=== PATIENT | female | born 1990 | race Caucasian/White ===

== ENCOUNTER → 2017-02-10 | Outpatient (CLI) | payer MEDICAID ==
--- NOTE | 2017-02-10 15:19 | XR ---
EXAMINATION TYPE: XR chest 2V DATE OF EXAM: 02/10/2017 COMPARISON: NONE HISTORY: Cough for 5 weeks. TECHNIQUE: Frontal and lateral views of the chest are obtained. FINDINGS: There is no focal air space opacity, pleural effusion, or pneumothorax seen. The cardiac silhouette size is within normal limits. The osseous structures are intact. IMPRESSION: No suspicious acute pulmonary process.
== END | disposition home or self-care (01) ==
LOC: RADXRMAIN 14:50
PROVIDERS: ATTEND Internal Medicine
DX: R05 Cough (principal)
CPT/HCPCS: 71046

== ENCOUNTER 2017-03-24 17:01 | Inpatient (IN) | payer MEDICAID ==
[2017-03-29] MEDS ORDERED: DINOPROSTONE 10 MG INSERT.ER VAGINAL ONE (19:25)
[2017-03-29] MEDS ORDERED: BUTORPHANOL 1 MG/ML 1 ML VIAL IV PRN (19:59)
[2017-03-29] MEDS ORDERED: TERBUTALINE 1 MG/ML VIAL SQ PRN (20:01)
[2017-03-29] MEDS ORDERED: METHYLERGONOVINE 0.2 MG/ML 1 ML AMP IM PRN (20:01)
[2017-03-29] MEDS ORDERED: OXYTOCIN 10 UNIT/ML 1 ML VIAL IM PRN (20:01)
[2017-03-29] MEDS ORDERED: CARBOPROST TROMETHAMINE 250 MCG/ML 1 ML AMP IM PRN (20:01)
[2017-03-29] MEDS ORDERED: LIDOCAINE 1% (PF) 10 MG/ML (30 ML SDV) SQ PRN (20:01)
[2017-03-29 20:04] VITALS: BMI 34.7
--- NOTE | 2017-03-29 20:10 | P.HPOB ---
History of Present Illness H&P Date: 03/29/17 Chief Complaint: 40 and 5/7 weeks, unfavorable cervix, labor induction The patient is a 27-year-old 1 para 0 admitted at 40-5/7 weeks as established by last menstrual period and confirmed by 19 week ultrasound. She is admitted for Cervidil cervical ripening and subsequent induction if necessary. Her has been entirely uncomplicated and group B strep status is negative. On labor and delivery, all signs are reassuring. Her cervix has been unfavorable at fingertip dilation, 70% effacement, with the vertex in presentation at -2-3 station. Obstetrical history 1 para 0 with current statistics listed above. EDC of 03/24/2017 was established by last menstrual period and confirmed by 19 week ultrasound. Laboratory workup demonstrates a blood type of A+ with a negative antibody screen. Rubella status is nonimmune and she is to receive vaccination following delivery. Remainder of her laboratory workup was within normal limits. One hour Glucola was within normal limits and group B strep status is negative. Gynecologic history is unremarkable with no history of any infections to include STDs. Review of Systems Review of systems is confined to history of present illness. Past Medical History Past Medical History: Asthma Additional Past Medical History / Comment(s): narcolepsy, History of Any Multi-Drug Resistant Organisms: None Reported Past Surgical History: No Surgical Hx Reported Past Anesthesia/Blood Transfusion Reactions: No Reported Reaction Past Psychological History: No Psychological Hx Reported Smoking Status: Never smoker Past Alcohol Use History: Occasional Past Drug Use History: None Reported - Past Family History Mother Family Medical History: No Reported History Medications and Allergies Home Medications Medication Instructions Recorded Confirmed Type Citalopram Hydrobromide [CeleXA] 20 mg PO DAILY 09/11/13 03/29/17 History Allergies Allergy/AdvReac Type Severity Reaction Status Date / Time No Known Allergies Allergy Verified 03/29/17 19:23 Exam - Vital Signs Vital signs: Vital Signs Temp Pulse Resp BP 03/29/17 19:22 97.9 F 100 16 150/88 Intake and Output 03/29/17 03/29/17 03/29/17 06:59 14:59 22:59 Other: Weight 88.904 kg Patient Weight 03/30/17 06:59 Weight 88.904 kg In general, this is a well-developed, well-nourished white female in no acute distress. Her heart has a regular rhythm and rate without murmur. Her lungs are clear to auscultation bilaterally in all yu. Her abdomen is gravid, nondistended, has normal active bowel sounds, is soft, nontender, and without any palpable masses aside from uterine fundus. Her extremities are without any cyanosis, clubbing, or significant edema and are nontender to palpation bilaterally. Digital cervical examination confirms her cervix to be fingertip dilated, 70% effaced, the vertex in presentation at -2-3 station. Assessment and Plan (1) Unfavorable cervix in term Current Visit: Yes Status: Acute Code(s): O34.40 - MATERNAL CARE FOR OTH ABNLT OF CERVIX, UNSP TRIMESTER SNOMED Code(s): 499155925 (2) Post-dates Current Visit: Yes Status: Acute Code(s): O48.0 - POST-TERM SNOMED Code(s): 75997079 Plan: The patient has been admitted for Cervidil cervical ripening and subsequent Pitocin induction if necessary. The risks and complications of the procedure have been thoroughly discussed including the risk of hyperstimulation and distress. She will have close maternal and surveillance and expectant management will be practiced. Should labor not ensue with Cervidil, Pitocin augmentation will be started at 6 AM tomorrow morning. She is a good candidate for either IV or epidural analgesia, whichever she may choose.
[2017-03-30 05:58] LABS: Basophils % (A) 0 %; Eosinophils # (A) 0.4 k/uL (0-0.7); Eosinophils % (A) 3 %; HCT 40.4 % (34.0-46.0); HGB 13.2 gm/dL (11.4-16.0); Lymphocytes # (A) 1.9 k/uL (1.0-4.8); Lymphocytes % (A) 15 %; MCH 31.2 pg (25.0-35.0); MCHC 32.7 g/dL (31.0-37.0); MCV 95.5 fL (80.0-100.0); Mean Platelet Volume 9.3; Monocytes # (A) 0.6 k/uL (0-1.0); Monocytes % (A) 5 %; Neutrophils # (A) 9.6 k/uL (1.3-7.7); Neutrophils % (A) 75 %; Platelet Count 214 k/uL (150-450); RBC 4.23 m/uL (3.80-5.40); RDW 12.7 % (11.5-15.5); WBC 12.8 k/uL (3.8-10.6)
[2017-03-30] MEDS: OXYTOCIN 20 UNITS/1000 ML NS 1,000 ML IV SCH (06:03)
[2017-03-30] MEDS: LACTATED RINGERS 1,000 ML IV SCH ×5 (06:03→21:55)
[2017-03-30] MEDS ORDERED: fentaNYL (PF) 50 MCG/ML 5 ML AMP ONE (21:31)
[2017-03-30] MEDS ORDERED: BUPIVACAINE (PF) 0.25% 30 ML VIAL ONE (21:31)
[2017-03-30] MEDS ORDERED: SODIUM CHLORIDE 0.9% 100 ML BAG ONE (21:31)
[2017-03-30] MEDS ORDERED: BUPIVACAINE (PF) 0.25% 25 ML, fentaNYL (PF) 200 MCG in SODIUM CHLORIDE 0.9% 71 ML EPIDURAL ONE (21:49)
[2017-03-30] MEDS ORDERED: PENICILLIN G POTASSIUM 5,000,000 UNIT in DEXTROSE 5% IN WATER 100 ML IVPB STA ×2 (22:15)
[2017-03-31] MEDS: PENICILLIN G POTASSIUM 2,500,000 UNIT in DEXTROSE 5% IN WATER 100 ML IVPB SCH ×4 (02:30→06:39)
[2017-03-31] MEDS: LACTATED RINGERS 1,000 ML IV SCH (04:53)
[2017-03-31] MEDS ORDERED: diphenhydrAMINE 25 MG CAP PO PRN (08:37)
[2017-03-31] MEDS ORDERED: WITCH HAZEL 1 EACH MED..PAD TOPICAL PRN (08:37)
[2017-03-31] MEDS ORDERED: ZOLPIDEM 5 MG TAB PO PRN (08:37)
[2017-03-31] MEDS ORDERED: HYDROCORTISONE 2.5% RECTAL CREAM 30 GM TUBE RECTAL PRN (08:37)
[2017-03-31] MEDS ORDERED: diphenhydrAMINE 50 MG/ML 1 ML VIAL IVP PRN ×2 (08:37)
[2017-03-31] MEDS ORDERED: LANOLIN CREAM 5 GM TUBE TOPICAL PRN (08:37)
[2017-03-31] MEDS ORDERED: SIMETHICONE 80 MG CHEWABLE PO PRN (08:37)
[2017-03-31] MEDS ORDERED: BENZOCAINE/MENTHOL SPRAY 1 GM/SPRAY AEROSOL TOPICAL PRN (08:37)
[2017-03-31] MEDS ORDERED: diphenhydrAMINE 50 MG CAP PO PRN (08:37)
[2017-03-31] MEDS ORDERED: Acetaminophen-Codeine 300-30mg TAB PO PRN ×2 (08:37)
--- NOTE | 2017-03-31 08:42 | P.PROBDLV ---
Vaginal Delivery Note - . Vaginal Delivery Note: The patient is a 27-year-old 1 para 0 admitted at 40-5/7 weeks for Cervidil cervical ripening followed by Pitocin induction. She had Cervidil placed 2 nights ago and pulled out in standard fashion yesterday morning at which time there was no significant cervical change. Pitocin augmentation had been started. Artificial rupture of membranes is carried out demonstrating what appeared to be light meconium-stained fluid. She made extraordinarily slow progress through the latent phase of labor and was comfortable for the majority of the day. She had antibody prophylaxis started at approximately 12- 14 hours following rupture as she was still remote from delivery. She then progressed through the last portions of the latent phase of labor and had an epidural catheter placed for analgesia at approximate 4 cm of dilation. She continued to make slow progress to the active phase of labor but then progressed quickly from 6-7 cm to complete and approximately 0 station. She pushed over the course of approximate 1 hour to a normal spontaneous vaginal delivery of a viable 7 lbs. 6 oz. baby boy with Apgars of 9 at 1 minute and 9 at 5 minutes delivered in the direct occiput anterior position. The placenta was delivered spontaneously, intact, and grossly normal with a grossly normal three-vessel cord inserted approximately 3 cm from the margin of the placental disc. There was a second-degree midline laceration noted which was repaired in standard fashion using 3-0 chromic catgut without difficulty. Estimated blood loss for the case is approximately 300 mL. There are no, occasions. All sponge , instrument, and needle counts were correct. Both mother and infant are resting comfortably in recovery.
[2017-03-31] MEDS ORDERED: OXYTOCIN 20 UNITS/1000 ML NS 1,000 ML IV SCH (08:45)
[2017-03-31] MEDS: IBUPROFEN 600 MG TAB PO PRN ×2 (09:20→15:06)
[2017-03-31] MEDS: OXYTOCIN 20 UNITS/1000 ML NS 1,000 ML IV SCH (10:08)
[2017-03-31] MEDS: ACETAMINOPHEN TAB 325 MG TAB PO PRN ×3 (10:54→20:22)
[2017-03-31] MEDS: SENNOSIDES-DOCUSATE SODIUM 1 EACH TAB PO SCH (20:14)
[2017-04-01] MEDS ORDERED: MEASLES-MUMPS-RUBELLA VACC/PF 12,500 UNIT/0.5 ML VIAL SQ ONE (00:22)
[2017-04-01] MEDS: IBUPROFEN 600 MG TAB PO PRN ×3 (00:34→15:42)
[2017-04-01] MEDS: ACETAMINOPHEN TAB 325 MG TAB PO PRN ×3 (03:55→19:45)
[2017-04-01] MEDS: SENNOSIDES-DOCUSATE SODIUM 1 EACH TAB PO SCH ×2 (08:51→19:45)
--- NOTE | 2017-04-01 11:12 | P.PNOBGVD ---
Subjective - Subjective Patient reports: Reports appetite normal, Reports voiding normally, Reports pain well controlled, Reports ambulating normally : doing well Objective - Latest Vital Signs Latest vital signs: Vital Signs Temp Pulse Pulse Pulse Resp BP 04/01/17 07:51 97.4 F L 74 16 119/81 04/01/17 00:00 98.0 F 92 16 104/72 03/31/17 20:00 98.1 F 91 16 114/76 03/31/17 16:30 98.0 F 80 16 98/67 03/31/17 13:00 98.0 F 79 16 116/75 - Exam Lungs: bilateral: normal Chest: Normal S1, Normal S2 Extremities: Present: normal, edema (Pedal and pretibial in nature, +1) Abdomen: Present: normal appearance, soft Uterus: Present: normal, firm (The uterine fundus as tonic and nontender just below the umbilicus) Assessment and Plan (1) Unfavorable cervix in term Current Visit: Yes Status: Acute Code(s): O34.40 - MATERNAL CARE FOR OTH ABNLT OF CERVIX, UNSP TRIMESTER SNOMED Code(s): 643660025 (2) Post-dates Current Visit: Yes Status: Acute Code(s): O48.0 - POST-TERM SNOMED Code(s): 83643978 (3) Normal spontaneous vaginal delivery Current Visit: Yes Status: Acute Code(s): O80 - ENCOUNTER FOR FULL-TERM UNCOMPLICATED DELIVERY SNOMED Code(s): 83788367 Plan: Continue routine care. The infant is required to remain in the hospital for 48 hours pending the outcome of cultures secondary to prolonged rupture of membranes. He is otherwise doing well and circumcision has been carried out. I do anticipate discharge home tomorrow pending complications.
[2017-04-02] MEDS: IBUPROFEN 600 MG TAB PO PRN ×2 (00:28→08:14)
[2017-04-02] MEDS: SENNOSIDES-DOCUSATE SODIUM 1 EACH TAB PO SCH (08:14)
[2017-04-02 08:46] VITALS: BP 120/76; PULSE 82; RESP 20; TEMP 98
--- NOTE | 2017-04-02 17:36 | P.DS ---
Providers Date of admission: 03/29/17 19:01 Expected date of discharge: 04/02/17 Attending physician: Nadeem Díaz Primary care physician: Ruddy Vázquez - Discharge Diagnosis(es) (1) Meconium in amniotic fluid affecting management of mother Status: Acute (2) Normal spontaneous vaginal delivery Status: Acute (3) Perineal laceration during delivery Status: Acute (4) Post-dates Status: Acute (5) Prolonged rupture of membranes Status: Acute (6) Unfavorable cervix in term Status: Acute Hospital Course: This is a 27-year-old 1 para 0 admitted at 40 and 5/7 weeks for induction of labor with Cervidil, patient did minimal with the Cervidil overnight and was started on Pitocin induction. Artificial rupture of membranes was performed yielding light meconium-stained fluid. She made a slow progress throughout the latent phase of labor and was comfortable for majority of that day. She then became actively laboring and antibiotic prophylaxis was started 12-14 hours following rupture of membranes. She progressed to complete eventually getting an epidural. She pushed over the course of actually 1 hour to have a normal spontaneous vaginal delivery of a viable male infant 7-6 with Apgars of 9 and 9 at one and 5 minutes respectively. The placenta was then delivered spontaneously patient did suffer a second degree midline laceration which was repaired in the usual fashion. Patient's course was uneventful. Patient was 2 days secondary to a prolonged rupture of membranes. On day #2 patient was anxious to go home. She was ambulating and voiding without difficulty. She was tolerating a regular diet without nausea or vomiting. Her lochia was minimal. She denies fevers chills nausea or vomiting. The infant was doing well in addition. Therefore on this day #2 she was discharged home in stable condition Patient Condition at Discharge: Good Plan - Discharge Summary New Discharge Prescriptions: No Action QUEtiapine FUMARATE [SEROquel] 1 tab PO DAILY Cetirizine HCl [Zyrtec] 10 mg PO DAILY Pnv No.95/Ferrous Fum/Folic AC [ Multivitamin Tablet] 1 tab PO DAILY Discharge Medication List Cetirizine HCl [Zyrtec] 10 mg PO DAILY 03/29/17 [History] Pnv No.95/Ferrous Fum/Folic AC [ Multivitamin Tablet] 1 tab PO DAILY [History] QUEtiapine FUMARATE [SEROquel] 1 tab PO DAILY 03/29/17 [History] Follow up Appointment(s)/Referral(s): Nadeem Díaz MD [STAFF PHYSICIAN] - 6 Weeks Patient Instructions/Handouts: Vaginal Delivery (DC) Discharge Disposition: HOME SELF-CARE
== END 2017-04-02 11:40 | disposition home or self-care (01) | DRG 775 ==
LOC: 4FBP 03-29 19:01
PROVIDERS: ADMIT Obstetrics & Gynecology; ATTEND Obstetrics & Gynecology
PROC: 10E0XZZ Delivery of Products of Conception, External Approach (ICD-10-PCS; principal; 2017-03-31)
PROC: 0KQM0ZZ Repair Perineum Muscle, Open Approach (ICD-10-PCS; 2017-03-31)
PROC: 10907ZC Drainage of Amniotic Fluid, Therapeutic from Products of Conception, Via Natural or Artificial Opening (ICD-10-PCS; 2017-03-31)
PROC: 00HU33Z Insertion of Infusion Device into Spinal Canal, Percutaneous Approach (ICD-10-PCS; 2017-03-31)
PROC: 3E0R3NZ Introduction of Analgesics, Hypnotics, Sedatives into Spinal Canal, Percutaneous Approach (ICD-10-PCS; 2017-03-31)
PROC: 3E033VJ Introduction of Other Hormone into Peripheral Vein, Percutaneous Approach (ICD-10-PCS; 2017-03-31)
DX: O48.0 Post-term pregnancy (principal); O99.354 Diseases of the nervous system complicating childbirth; G47.419 Narcolepsy without cataplexy; O70.1 Second degree perineal laceration during delivery; O77.0 Labor and delivery complicated by meconium in amniotic fluid; O42.92 Full-term premature rupture of membranes, unspecified as to length of time between rupture and onset of labor; Z3A.40 40 weeks gestation of pregnancy; Z79.899 Other long term (current) drug therapy; Z37.0 Single live birth
CPT/HCPCS: 85025; 88307; 90707

== ENCOUNTER 2019-05-02 20:47 | Emergency (ER) | payer MEDICAID ==
[2019-05-02] MEDS ORDERED: IPRATROPIUM-ALBUTEROL 3 ML NEB INHALATION STA (21:21)
[2019-05-02] MEDS ORDERED: ACETAMINOPHEN TAB 325 MG TAB PO STA (21:21)
--- NOTE | 2019-05-02 21:43 | XR ---
EXAMINATION TYPE: XR chest 2V DATE OF EXAM: 05/02/2019 COMPARISON: Prior chest x-ray 02/10/2017 HISTORY: Fever and cough TECHNIQUE: Frontal and lateral views of the chest are obtained. FINDINGS: There is no focal air space opacity, pleural effusion, or pneumothorax seen. The cardiac silhouette size is within normal limits. The osseous structures are intact. IMPRESSION: No acute cardiopulmonary process.
[2019-05-02 22:00] VITALS: BP 114/71; PULSE 92; RESP 20; TEMP 98.1
--- NOTE | 2019-05-02 22:13 | ED ---
General Adult HPI - General Chief complaint: Fever Stated complaint: Fever/Cough/SOB Time Seen by Provider: 05/02/19 20:57 Source: patient Mode of arrival: ambulatory Limitations: no limitations - History of Present Illness Initial comments: Patient is a 29-year-old female, with history of mild asthma, presenting to emergency Department with complaints of a cough, shortness of breath 1 week. Patient states her cough started approximately one week ago and has been progressively getting worse. She states she feels some shortness of breath today that had her more concerned. She did have a fever for one day, 2 days ago. She has had no fever yesterday or today. She has been doing albuterol nebulizer treatments at home. She is currently on day 3 of a steroid Dosepak. She has been taking Tylenol and Motrin for headache. Patient denies any chest pains, abdominal pain, nausea, vomiting, diarrhea. She denies sore throat. She is a nurse in the emergency department here. She has no other pertinent past medical history. She has no other complaints at this time. Upon arrival to the ER, Patient is tachycardia at 121, respiratory rate of 26, BP 130/78, 97% on room air, 98.4 temp. - Related Data Home Medications Medication Instructions Recorded Confirmed Cetirizine HCl [Zyrtec] 10 mg PO HS 03/29/17 05/02/19 QUEtiapine FUMARATE [SEROquel] 25 mg PO HS 03/29/17 05/02/19 Citalopram Hydrobromide [CeleXA] 20 mg PO HS 05/02/19 05/02/19 Dextroamphetamine Sulfate 30 mg PO BID 05/02/19 05/02/19 [Dexedrine] Multivitamins, Thera [Multivitamin 1 tab PO DAILY 05/02/19 05/02/19 (formulary)] Previous Rx's Medication Instructions Recorded Azithromycin [Zithromax Z-pack] 0 mg PO DIRECTED #1 pack 05/02/19 Ipratropium-Albuterol Nebulize 3 ml INHALATION QID #1 box 05/02/19 [Duoneb 0.5 mg-3 mg/3 ml Soln] Allergies Allergy/AdvReac Type Severity Reaction Status Date / Time No Known Allergies Allergy Verified 05/02/19 21:39 Review of Systems ROS Statement: Those systems with pertinent positive or pertinent negative responses have been documented in the HPI. ROS Other: All systems not noted in ROS Statement are negative. Past Medical History Past Medical History: Asthma Additional Past Medical History / Comment(s): narcolepsy, History of Any Multi-Drug Resistant Organisms: None Reported Past Surgical History: No Surgical Hx Reported Past Anesthesia/Blood Transfusion Reactions: No Reported Reaction Past Psychological History: Bipolar Smoking Status: Never smoker Past Alcohol Use History: Occasional Past Drug Use History: None Reported - Past Family History Mother Family Medical History: No Reported History General Exam - General Exam Comments Initial Comments: GENERAL: Well-appearing, well-nourished and in no acute distress, actively coughing. HEAD: Atraumatic, normocephalic. EYES: Pupils equal round and reactive to light, extraocular movements intact, sclera anicteric, conjunctiva are normal. ENT: TMs normal, nares patent, oropharynx clear without exudates. Moist mucous membranes. NECK: Normal range of motion, supple without lymphadenopathy or JVD. LUNGS: Breath sounds clear to auscultation bilaterally and equal. No wheezes rales or rhonchi. HEART: Tachycardia rate and rhythm without murmurs, rubs or gallops. ABDOMEN: Soft, nontender, normoactive bowel sounds. No guarding, no rebound. No masses appreciated. : Deferred EXTREMITIES: Normal range of motion, no pitting or edema. No clubbing or cyanosis. NEUROLOGICAL: Normal speech, normal gait. PSYCH: Normal mood, normal affect. SKIN: Warm, Dry, normal turgor, no rashes or lesions noted. Limitations: no limitations Course Vital Signs 05/02/19 05/02/19 05/02/19 20:51 21:41 21:59 Temperature 98.4 F 98.1 F Pulse Rate 121 H 88 92 Respiratory 26 H 20 Rate Blood Pressure 130/78 114/71 O2 Sat by Pulse 97 97 Oximetry Medical Decision Making - Medical Decision Making Patient is a 29-year-old female presenting with a cough 1 week. Shortness of breath today. Patient was tachycardia upon arrival. Afebrile. Chest x-ray shows no acute abnormalities. Patient was given Tylenol, DuoNeb treatment. She reports improvement in her symptoms. Pulse is 88, respirations are 20. 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 Patient has been self quarantine at home and she will continue this process. We discussed continuing her already prescribed a steroid Dosepak. She will also be given a prescription for DuoNeb breathing treatments at home to use for shortness of breath or coughing. She also be given a prescription for azithromycin. Patient is in agreement with this plan of care. She is stable for discharge and wishes to go home. Strict return parameters were discussed with the patient she verbalized understanding. Case discussed with Dr. Bojorquez. Disposition Clinical Impression: Upper respiratory infection, Bronchitis Disposition: HOME SELF-CARE Condition: Stable Instructions (If sedation given, give patient instructions): Upper Respiratory Infection (ED) Additional Instructions: Please return to the Emergency Department if symptoms worsen or any other concerns. Finished current steroid pack. Continue with the dual at home nebulizer treatments as needed for cough or shortness of breath. Take antibiotic as prescribed. Follow up with PCP as needed. Prescriptions: Ipratropium-Albuterol Nebulize [Duoneb 0.5 mg-3 mg/3 ml Soln] 3 ml INHALATION QID #1 box Azithromycin [Zithromax Z-pack] 0 mg PO DIRECTED #1 pack Is patient prescribed a controlled substance at d/c from ED?: No Referrals: Ruddy Vázquez DO [Primary Care Provider] - 1-2 days
== END 2019-05-02 22:27 | disposition home or self-care (01) ==
LOC: EC 20:47
DX: J06.9 Acute upper respiratory infection, unspecified (principal); J40 Bronchitis, not specified as acute or chronic; R00.0 Tachycardia, unspecified; G47.419 Narcolepsy without cataplexy; F31.9 Bipolar disorder, unspecified; Z79.899 Other long term (current) drug therapy; Z87.09 Personal history of other diseases of the respiratory system
CPT/HCPCS: 71046; 94640; 99283

== ENCOUNTER 2019-10-16 20:28 | Emergency (ER) | payer MEDICAID, OTHER ==
[2019-10-16 20:33] VITALS: BP 138/89; PULSE 97; RESP 20; TEMP 98.1
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
== END 2019-10-16 20:55 | disposition home or self-care (01) ==
LOC: EC 20:28
DX: S50.11XA Contusion of right forearm, initial encounter (principal); F31.9 Bipolar disorder, unspecified; G47.419 Narcolepsy without cataplexy; Z79.899 Other long term (current) drug therapy; Y04.8XXA Assault by other bodily force, initial encounter; Y92.69 Other specified industrial and construction area as the place of occurrence of the external cause; Y99.0 Civilian activity done for income or pay
CPT/HCPCS: 99283

== ENCOUNTER → 2021-01-07 | Outpatient (CLI) | payer MEDICAID | END | disposition home or self-care (01) | LOC: LABWHC1 15:04 | PROVIDERS: ATTEND Otolaryngology | DX: Z53.9 Procedure and treatment not carried out, unspecified reason (principal) ==

== ENCOUNTER → 2021-07-10 | Outpatient (CLI) | payer MEDICAID ==
--- NOTE | 2021-07-10 12:52 | XR ---
EXAMINATION TYPE: XR chest 2V DATE OF EXAM: 07/10/2021 COMPARISON: Chest x-ray May 02, 2019 HISTORY: History of asthma, chronic cough TECHNIQUE: Frontal and lateral views of the chest are obtained. FINDINGS: There is no suspicious focal air space opacity, pleural effusion, or pneumothorax seen. T he cardiac silhouette size remains within normal limits. The osseous structures are intact. IMPRESSION: No acute pulmonary process.
== END | disposition home or self-care (01) ==
LOC: RADXRMAIN 11:04
PROVIDERS: ATTEND Family Medicine
DX: J45.909 Unspecified asthma, uncomplicated (principal)
CPT/HCPCS: 71046

== ENCOUNTER → 2021-08-08 | Outpatient (CLI) | payer MEDICAID ==
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
== END | disposition home or self-care (01) ==
LOC: RADUSWWP 16:29
PROVIDERS: ATTEND Family Medicine
DX: R22.0 Localized swelling, mass and lump, head (principal)
CPT/HCPCS: 76536

== ENCOUNTER 2021-11-11 17:15 | Emergency (ER) | payer MEDICAID, OTHER ==
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
[2021-11-11 20:13] VITALS: BP 143/94; PULSE 102; RESP 18; TEMP 98
== END 2021-11-11 19:53 | disposition home or self-care (01) ==
LOC: EC 17:15
DX: M54.2 Cervicalgia (principal); J45.909 Unspecified asthma, uncomplicated; F31.9 Bipolar disorder, unspecified; Z91.018 Allergy to other foods; Z79.899 Other long term (current) drug therapy; Y04.2XXA Assault by strike against or bumped into by another person, initial encounter
CPT/HCPCS: 70450; 72125; 99285

== ENCOUNTER → 2021-11-13 | Outpatient (CLI) | payer OTHER ==
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
--- NOTE | 2021-11-13 12:18 | XR ---
EXAMINATION TYPE: XR hand complete RT, XR wrist complete RT DATE OF EXAM: 11/13/2021 12:11 PM INDICATION: Patient age:Female; 31 years old; Reason for study: S20.20XA, S23.3XXA, S33.5XXA, S73.101A, S60.221A; COMPARISON: None TECHNIQUE: Frontal, lateral and oblique views of the right hand were obtained. Frontal, lateral, obli que, and navicular views of the right wrist were obtained. FINDINGS: Normal alignment of the visualized joints. No acute osseous pathology is identified. No e vidence of soft tissue swelling. No radiopaque foreign bodies. IMPRESSION: No acute osseous pathology.
--- NOTE | 2021-11-13 12:19 | XR ---
EXAM TYPE: LUMBAR SPINE X RAY SERIES COMPARISON: NONE HISTORY: Pain TECHNIQUE: 3 views are submitted. FINDINGS: Alignment is anatomic. The pedicles are intact. The transverse processes are intact. There is mult ilevel facet arthropathy. Calcifications in the pelvis likely vascular. IMPRESSION: 1. Facet arthropathy mid and lower lumbar spine.
--- NOTE | 2021-11-13 12:19 | XR ---
EXAMINATION TYPE: XR thoracic spine complete DATE OF EXAM: 11/13/2021 COMPARISON: NONE HISTORY: Pain TECHNIQUE: 3 views submitted FINDINGS: Alignment is anatomic. There is no compression deformities. Hypertrophic and degenerative change of the spine. Mild diffuse osteopenia. IMPRESSION: 1. Diffuse osteopenia with multilevel mild hypertrophic and degenerative changes..
--- NOTE | 2021-11-13 12:21 | XR ---
EXAMINATION TYPE: XR Hip Complete RT DATE OF EXAM: 11/13/2021 12:12 PM INDICATION: Patient age:Female; 31 years old; Reason for study: S20.20XA, S23.3XXA, S33.5XXA, S73.101A, S60.221A COMPARISON: None. TECHNIQUE: The right hip was examined in the frontal and lateral projections FINDINGS: No evidence of any acute osseous pathology, joint dislocation, or soft tissue swelling. Mul tiple pelvic phleboliths identified. IMPRESSION: No acute osseous pathology.
== END | disposition home or self-care (01) ==
LOC: RADXRMAIN 11:38
PROVIDERS: ATTEND Emergency Medicine
DX: S20.20XA Contusion of thorax, unspecified, initial encounter (principal); S23.3XXA Sprain of ligaments of thoracic spine, initial encounter; S33.5XXA Sprain of ligaments of lumbar spine, initial encounter; S73.101A Unspecified sprain of right hip, initial encounter; S60.221A Contusion of right hand, initial encounter
CPT/HCPCS: 71045; 72072; 72100; 73502

== ENCOUNTER → 2021-12-24 | Outpatient (CLI) | payer MEDICAID ==
--- NOTE | 2021-12-24 10:14 | BD ---
EXAMINATION TYPE: Axial Bone Density DATE OF EXAM: 12/24/2021 COMPARISON: BASELINE CLINICAL HISTORY: 31 years old Female. ICD-10 CODE: M85.80 OSTEOPENIA : NO LMP 12-07-2021 Height: 64 Weight: 213 FRAX RISK QUESTIONS: Family History (Parent hip fracture): NO Glucocorticoids (More than 3mos): HAS BEEN ON 3-4 TREATMENTS OF STEROIDS SINCE COVID IN 2020 2 TIMES THIS YEAR (Ex: prednisone, prednisolone, methylprednisolone, dexamethasone, and hydrocortisone). History of Fracture in Adulthood: NO Secondary Osteoporosis: NO 3. Menopause before 45: ONLY 31 STILL ON CYCLE Rheumatoid Arthritis: NO Current Tobacco Use: NO RISK FACTORS HISTORY OF: Family History of Osteoporosis: YES MOTHER Active: YES Diet low in dairy products/other sources of calcium: NO Postmenopausal woman: NO If Premenopausal, do you have irregular periods: NO Lost more than 2 inches in height since high school: NO MEDICATIONS: Prednisone or other steroids: NO IN PAST How Long: ON AND OFF 2 YRS LAST IN 08/2021 Additional Medications: YES BC,DEXEDRINE,BI-POLAR MEDS,VIT D,ZRYTEC, REFLUX, INHALERS Additional History: NO EXAM MEASUREMENTS: Bone mineral densitometry was performed using the [employer]. Bone mineral density as measured about the Lumbar spine is: ----- L1-L4(G/cm2): 1.172 T Score Values are as follows: ----- L1: -0.4 ----- L2: -0.7 ----- L3: 0.8 ----- L4: -0.3 ----- L1-L4: -0.1 Bone mineral density BASELINE Bone mineral density about the R hip (g/cm2): 0.936 Bone mineral density about the L hip (g/cm2): 0.949 T Score values are as follows: -----R Neck: -0.8 -----L Neck: -1.3 -----R Total: -0.6 -----L Total: -0.5 Bone mineral density BASELINE FRAX%s: NO FRAX TOO YOUNG IMPRESSION: Osteopenia (T Score between -2.5 and -1). There is slightly increased risk of fracture and the patient may be considered for treatment. Re-Screen 2-5 years. NOTE: T-SCORE=SD OF THE YOUNG ADULT MEAN.
== END | disposition home or self-care (01) ==
LOC: RADBDWWP 09:10
PROVIDERS: ATTEND Family Medicine
DX: M85.89 Other specified disorders of bone density and structure, multiple sites (principal); Z78.0 Asymptomatic menopausal state; Z79.52 Long term (current) use of systemic steroids; Z86.16 Personal history of COVID-19
CPT/HCPCS: 77080

== ENCOUNTER → 2024-04-20 | Outpatient (CLI) | payer MEDICAID ==
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
== END | disposition home or self-care (01) ==
LOC: RADMRIMAIN 13:07
PROVIDERS: ATTEND Orthopaedic Surgery
DX: S42.291A Other displaced fracture of upper end of right humerus, initial encounter for closed fracture (principal); W19.XXXA Unspecified fall, initial encounter

== ENCOUNTER → 2024-04-28 | Outpatient (CLI) | payer MEDICAID ==
[2024-04-28 15:06] LABS: Basophils # (A) 0.09 X 10*3/uL (0.00-0.10); Basophils % (A) 0.9 %; Eosinophils # (A) 0.66 X 10*3/uL (0.04-0.35); Eosinophils % (A) 6.4 %; HCT 34.8 % (37.2-46.3); HGB 10.8 g/dL (12.0-15.0); Lymphocytes # (A) 3.22 X 10*3/uL (0.90-5.00); Lymphocytes % (A) 31.1 %; MCH 26.4 pg (27.0-32.0); MCV 85.1 FL (80.0-97.0); Mean Platelet Volume 11.5 FL (9.5-12.2); Monocytes # (A) 0.68 X 10*3/uL (0.20-1.00); Monocytes % (A) 6.6 %; NRBC Per 100 WBC 0 X 10*3/uL (0.00-0.01); Neutrophils # (A) 5.67 X 10*3/uL (1.80-7.70); Neutrophils % (A) 54.7 %; Platelet Count 350 X 10*3/uL (140-440); RBC 4.09 X 10*6/uL (4.10-5.20); WBC 10.35 X 10*3/uL (4.50-10.00)
[2024-04-28 15:35] LABS: ALT 11 U/L (8-44); AST 17 U/L (13-35); Albumin 3.5 g/dL (3.8-4.9); Albumin/Globulin Ratio 1.17 Ratio (1.60-3.17); Alkaline Phosphatase 107 U/L (41-126); BUN/Creat Ratio 11.62 Ratio (12.00-20.00); Blood Urea Nitrogen 9.3 mg/dL (9.0-27.0); Calcium 8.9 mg/dL (8.7-10.3); Carbon Dioxide 25.2 mmol/L (21.6-31.8); Chloride 105 mmol/L (96-109); Chol/HDL Ratio 4.13 Ratio; Glucose 87 mg/dL (70-110); LDL Cholesterol,Calculated 142.9 mg/dL (0.0-131.0); Potassium 3.9 mmol/L (3.5-5.5); Sodium 140 mmol/L (135-145); T4, Free (Free Thyroxine) 0.91 ng/dL (0.80-1.80); Total Bilirubin 0.2 mg/dL (0.3-1.2); Total Protein 6.5 g/dL (6.2-8.2)
== END | disposition home or self-care (01) ==
LOC: LABWHC1 09:19
PROVIDERS: ATTEND Nurse Practitioner Family
DX: Z00.00 Encounter for general adult medical examination without abnormal findings (principal); J45.909 Unspecified asthma, uncomplicated; G47.419 Narcolepsy without cataplexy; F31.9 Bipolar disorder, unspecified
CPT/HCPCS: 36415; 80053; 80061; 82306; 83036; 84439; 84443; 85025

== ENCOUNTER → 2024-05-08 | Outpatient (CLI) | payer OTHER ==
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
== END | disposition home or self-care (01) ==
LOC: RADXRMAIN 14:28
PROVIDERS: ATTEND Emergency Medicine
DX: S46.911A Strain of unspecified muscle, fascia and tendon at shoulder and upper arm level, right arm, initial encounter (principal)